=== PATIENT | female | born 1955 | race Caucasian/White ===

== ENCOUNTER → 2017-01-15 | Outpatient (CLI) | payer MEDICARE ==
[~2017-01-15] MED LIST: ISOVUE-370 76% 100ML VIAL (Q9967) As Ordered ONE
--- NOTE | 2017-01-15 14:19 | REP ---
CT ANGIOGRAM OF THE BRAIN: 01/15/2017. Comparison: 02/01/2016 and 12/06/2014 at [facility]. MRA brain 06/11/2014. Technique: After 75 mL of Isovue 370 scanning through the brain with thin-section axial coronal and sagittal reconstructions. Clinical history: Followup cerebral aneurysm anterior communicating artery. Findings. After contrast infusion the ventricles are seen midline symmetric and without dilatation or displacement. Basal ganglia is symmetric. Mullins-white junction grossly maintained. Cortical stripe preserved. No vascular territory infarct or atrophy. The brainstem, cerebellum, and posterior fossa grossly intact. Contrast images show a 2 mm aneurysm projecting off the inferior aspect anterior cerebral artery which is unchanged. It is best seen on coronal and sagittal MIP's. There is no other aneurysm or stenosis. There is some atherosclerotic plaque in the cavernous sinuses as before. Symmetric contribution of the vertebral arteries to the basilar artery. Impression: 1. 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 Projects inferiorly and best seen on coronal and sagittal MIPs. Some atherosclerotic plaques in the cavernous sinuses. No other finding. Signed by Olman Bui MD 01/15/2017 04:52 P
== END ==
LOC: M RAD 13:00
PROVIDERS: ATTEND Neurological Surgery
DX: I67.1 Cerebral aneurysm, nonruptured (principal)
CPT/HCPCS: 70496; Q9967

== ENCOUNTER → 2017-02-06 | Outpatient (CLI) | payer MEDICARE ==
--- NOTE | 2017-02-06 11:08 | REP ---
CAROTID ULTRASOUND: Real-time ultrasound evaluation and duplex Doppler interrogation of the extracranial carotid vasculature is performed. There is mild plaquing and narrowing in both carotid bulbs extending into the internal and external carotid arteries. Luminal narrowing is less than 50%. There is no evidence of hemodynamically significant stenosis of either internal carotid artery. Normal flow velocities are seen. The vertebral arteries demonstrate normal direction of flow. RIGHT LEFT Peak systolic velocity ICA 51.7 cm/s 74.6 cm/s End diastolic velocity ICA 14.0 cm/s 17.3 cm/s Peak systolic velocity CCA 72.8 cm/s 78.9 cm/s Peak systolic velocity ECA 61.4 cm/s 73.2 cm/s ICA/CCA ratio 0.71 0.95 IMPRESSION: Bilateral luminal narrowing of the internal carotid arteries less than 50%. No evidence of hemodynamically significant stenosis. Signed by Amado Mullins MD 02/06/2017 11:00 A
== END ==
LOC: M RAD 09:17
PROVIDERS: ATTEND Neurological Surgery
DX: I65.29 Occlusion and stenosis of unspecified carotid artery (principal)

== ENCOUNTER → 2017-06-07 | Outpatient (CLI) | payer MEDICARE ==
[~2017-06-07] MED LIST changes: +COUM2.5T17 PO; +GABA-282 PO; -ISOVUE-370 76% 100ML VIAL (Q9967) As Ordered ONE; +LISI-542 PO; +PERC5TAB12 PO; +PROAAER10 INH; +SKEL800T97 PO; +TYLETAB14 PO
[2017-06-07 11:07] LABS: MEAN CORPUSCULAR HEMOGLOBIN 31.1 pg (27.0-33.0); MEAN CORPUSCULAR HGB CONC 32.3 g/dl (32.0-36.5); MEAN CORPUSCULAR VOLUME 96.3 fl (80.0-96.0); RED CELL DISTRIBUTION WIDTH 13.3 % (11.5-14.5); WHITE BLOOD COUNT 6.3 10^3/uL (4.0-10.0)
[2017-06-07 11:18] LABS: INR 0.85
[2017-06-07 11:24] LABS: ALBUMIN 4.1 GM/DL (3.2-5.2); ALBUMIN/GLOBULIN RATIO 1.32 (1.00-1.93); ALKALINE PHOSPHATASE 77 U/L (45-117); ALT/SGPT 25 U/L (12-78); ANION GAP 4 MEQ/L (8-16); AST/SGOT 11 U/L (15-37); BILIRUBIN,TOTAL 0.2 MG/DL (0.2-1.0); BLOOD UREA NITROGEN 14 MG/DL (7-18); CALCIUM LEVEL 9.5 MG/DL (8.8-10.2); CARBON DIOXIDE LEVEL 32 MEQ/L (21-32); CHLORIDE LEVEL 105 MEQ/L (98-107); CREATININE FOR GFR 0.74 MG/DL (0.55-1.02); GLOMERULAR FILTRATION RATE > 60.0 (>45); GLUCOSE, FASTING 83 MG/DL (80-110); SODIUM LEVEL 141 MEQ/L (136-145); TOTAL PROTEIN 7.2 GM/DL (6.4-8.2)
--- NOTE | 2017-06-07 11:49 | REP ---
Chest x-ray: Two views. History: Anesthesia protocol. Comparison study October 31, 2007. Findings: The patient is status post cervical laminectomy and posterior element and ventral fusion surgery as before. There are degenerative disc changes in the thoracic spine. There is a surgical anchor in the right humeral head. No other bony abnormalities seen. The lungs are well inflated and clear. The pleural angles are sharp. Heart size is normal. The aorta is slightly tortuous. Pulmonary vasculature is not increased. Impression: No active cardiopulmonary disease. Extensive surgical fusion noted in the cervical spine. Signed by Leon Gaines MD 06/07/2017 03:51 P
--- NOTE | 2017-06-07 17:38 | ECGEPIP ---
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
== END ==
LOC: M ADMPAT 09:11
PROVIDERS: ATTEND Orthopaedic Surgery
DX: Z01.818 Encounter for other preprocedural examination (principal); M16.12 Unilateral primary osteoarthritis, left hip; Z98.890 Other specified postprocedural states

== ENCOUNTER 2017-06-20 05:54 | Inpatient (IN) | payer MEDICARE ==
[2017-06-07 09:19] VITALS: BP 112/64
--- NOTE | 2017-06-18 12:59 | HPE ---
DATE OF ADMISSION: 06/20/2017 ATTENDING PHYSICIAN: Blas Santos MD CHIEF COMPLAINT: Left hip pain and stiffness. HISTORY: The patient is a 61-year-old female with progressively worsening left hip pain and stiffness. She failed to improve with conservative measures. She continues to have pain with weightbearing activities and activities of daily living. She has consented for a left total hip arthroplasty with Dr. Santos. Medical optimization received from Raiza Jonas, nurse practitioner. This was reviewed during today's appointment. CURRENT MEDICATIONS: - Anoro Ellipta inhaler 62.5/25 mcg once daily - Celebrex 100 mg daily - lisinopril 5 mg daily - gabapentin 300 mg daily - ProAir 108 mcg two puffs every 4-6 hours as needed for shortness of breath - Skelaxin 800 mg daily - Tylenol with codeine 300/60 mg one tablet up to four times a day as needed ALLERGIES: SYMBICORT, reaction is oral thrush. CHRONIC MEDICAL CONDITIONS: Chronic obstructive pulmonary disease, lisinopril. Cervicalgia. Chronic headaches. Hyperlipidemia. Myalgia and myositis. Nicotine dependence. Osteoarthritis. Thrombocytopenia. SURGICAL HISTORY: Cervical fusion. Right knee anterior cruciate ligament (ACL) reconstruction. Right knee meniscus repair. Right rotator cuff repair. Right carpal tunnel release. SOCIAL HISTORY: The patient is a current smoker and not interested in quitting. She does understand risks of delayed healing with surgery. She occasionally consumes alcohol. She lives at home with her significant other. REVIEW OF SYSTEMS: The patient denies fevers, chills, nausea, vomiting, or diarrhea. She denies chest pain, shortness of breath, lightheadedness, headaches, or abdominal pain. She does have continued left hip pain with weightbearing activities and activities of daily living. She also has neck and low back pain. EXAMINATION: A well nourished, well developed female, in no apparent distress. Vital signs: Height 5 feet 1 inch. Weight 144 pounds. Temperature 97.6. Heart rate 62. Blood pressure 138/70. Respirations 14. Head: Normocephalic. Neck: Supple without lymphadenopathy. Heart: Regular rate and rhythm. Lungs: Clear to auscultation bilaterally. Abdomen: Bowel sounds are present. Abdomen is soft and nontender to palpation. Musculoskeletal: Inspection of the left hip reveals no gross abnormalities. Skin is intact. Overall motion of the hip is not too bad, and she does have 5/5 strength of the left lower extremity. There is some hip irritability elicited with range of motion. Her calf is soft, nontender to palpation, with no palpable cords noted. Pedal pulses are palpable. Capillary refill is brisk, and sensation is intact. LABORATORY DATA: Chest x-ray: No active cardiopulmonary disease. Extensive surgical fusion noted in the cervical spine. Electrocardiogram (EKG): Sinus rhythm. Urinalysis: Negative with urine culture revealing no growth. Nasal and sinus culture reveal normal deborah. Comprehensive metabolic profile: Fasting glucose 83, blood urea nitrogen 14, creatinine for GFR 0.74, glomerular filtration rate greater than 60. Sodium 141, potassium 5.0, chloride 105, carbon dioxide 32, anion gap decreased at 4, calcium 9.5, AST decreased at 11, ALT 25, alkaline phosphatase 77, total bilirubin 0.2, total protein 7.2, albumin 4.1, albumin globulin ratio 1.32. Complete blood count: WBC is 6.3, RBC is 4.89, hemoglobin 15.3, hematocrit elevated at 47.1, platelets decreased at 141. Erythrocyte sedimentation rate 6. Prothrombin time decreased at 11.6, INR 0.85. IMPRESSION: Left hip osteoarthritis with x-rays notable for end-stage degenerative changes. PLAN: The patient has elected for a left total hip arthroplasty with Dr. Santos. Medical optimization received and reviewed from Raiza Jonas, nurse practitioner, at time of visit. CANDIS
[~2017-06-20] VITALS: Ht 154.9 cm; Wt 65.7 kg
[2017-06-20] VITALS (7 sets, daily range): BP systolic 90–134; BP diastolic 56–75
[~2017-06-20 05:54] MED LIST changes: -COUM2.5T17 PO; -PERC5TAB12 PO
[2017-06-20] MEDS ORDERED: PERCOCET 5MG/325MG TAB PO ONE (06:00)
[2017-06-20] MEDS ORDERED: PREGABALIN 75 MG CAP(LYRICA) PO ONE (06:00)
[2017-06-20] MEDS ORDERED: LR 1,000 ML IV ONE (06:00)
[2017-06-20] MEDS ORDERED: CelecoXIB 400 MG CAP PO ONE (06:00)
[2017-06-20] MEDS ORDERED: BUPIVACAINE/EPIN 0.25% 30 ML VIAL As Ordered ONE (06:11)
[2017-06-20] MEDS ORDERED: ceFAZolin 1GM INJ (J0690) As Ordered ONE (06:12)
[2017-06-20] MEDS ORDERED: EPINEPHrine INJ 1 MG/ML 1ML AMP As Ordered ONE (06:12)
[2017-06-20] MEDS ORDERED: TRANEXAMIC ACID 100 MG/ML 10ML VIAL As Ordered ONE (06:12)
[2017-06-20] MEDS ORDERED: fentaNYL 100 MCG/2 ML INJECTION (J3010) As Ordered ONE (08:19)
[2017-06-20] MEDS ORDERED: PROPOFOL 200 MG/20 ML VIAL As Ordered ONE (08:19)
[2017-06-20] MEDS ORDERED: MIDAZOLAM INJ 5 MG/ML VIAL (J2250) As Ordered ONE (08:19)
[2017-06-20] MEDS ORDERED: LIDOCAINE 2% INJ 100 MG/5 ML SDV (FOR ANES.) As Ordered ONE (08:19)
[2017-06-20] MEDS ORDERED: ePHEDrine SULFATE 25 MG/5 ML(5MG/ML) SYRINGE As Ordered ONE ×2 (08:19→08:54)
[2017-06-20] MEDS ORDERED: ONDANSETRON 4MG/2ML VIAL (J2405) As Ordered ONE (08:20)
[2017-06-20] MEDS ORDERED: fentaNYL 100 MCG/2 ML INJECTION (J3010) IV PRN (10:00)
[2017-06-20] MEDS ORDERED: ACETAMINOPH W/CODEINE #3 TAB UD PO PRN (10:00)
[2017-06-20] MEDS ORDERED: PERCOCET 5MG/325MG TAB PO PRN ×2 (10:00)
[2017-06-20] MEDS ORDERED: ACETAMINOPHEN TAB 650MG DOSE (2X325MG) PO PRN (10:00)
[2017-06-20] MEDS ORDERED: METOCLOPRAMIDE INJ 10MG/2ML VIAL (J2765) IV PRN (10:00)
[2017-06-20] MEDS ORDERED: PROMETHAZINE INJ 25 MG/ML VIAL (J2550) IV PRN (10:00)
[2017-06-20] MEDS ORDERED: ONDANSETRON 4MG/2ML VIAL (J2405) IV PRN (10:00)
[2017-06-20] MEDS ORDERED: FLEET ENEMA PR PRN (10:00)
[2017-06-20] MEDS: D5W/0.45% SODIUM CHLORIDE 1,000 ML IV SCH ×2 (10:00→20:33)
[2017-06-20] MEDS ORDERED: LR 1,000 ML IV SCH (10:00)
[2017-06-20] MEDS ORDERED: HYDROmorphone HCL 1 MG/ML SYRINGE (J1170) IV PRN ×2 (10:15)
[2017-06-20] MEDS: MORPHINE 2 MG/ML 1ML SYRINGE IV PRN ×3 (10:20→10:30)
[2017-06-20] MEDS: PERCOCET 5MG/325MG TAB PO PRN ×2 (14:18→20:32)
[2017-06-20] MEDS ORDERED: WARFARIN SOD 2.5 MG TAB PO ONE (17:00)
[2017-06-20] MEDS ORDERED: WARFARIN SOD 1 MG TAB PO ONE (17:00)
--- NOTE | 2017-06-20 18:09 | RO ---
DATE OF PROCEDURE: 06/20/2017 PREOPERATIVE DIAGNOSIS: Left hip osteoarthritis. POSTOPERATIVE DIAGNOSIS: Left hip osteoarthritis. PROCEDURE PERFORMED: Left total hip replacement. SURGEON: Dr. Blas Santos [place] SURVEYOR: John Davidson PA-C ANESTHESIA: Dr. Pham, spinal. ESTIMATED BLOOD LOSS: Less than 50 mL, replaced with crystalloid. No complications. COMPONENTS USED: [place] system Press-Fit hip component size 50 mm acetabular component, size 4 femoral component, +1 neck length, 32 mm hip ball, size 32 mm AltrX liner, apex hole eliminator times one. INDICATIONS: Progressive discomfort in the left hip with symptoms of osteoarthritis with positive imaging studies as well. Consent reviewed in detail with the patient, including a fito discussion of the pathology involved, procedure proposed, alternatives including doing nothing, risks including but not limited to pain, failure, infection, bleeding blood loss, incomplete relief of symptoms, blood clot, dislocation, need for more surgery, limp, loss of limb, and other issues. The patient agrees to proceed with surgery. DESCRIPTION OF PROCEDURE: Identified in the holding area, site and side verified, brought to the operating room. Spinal anesthesia was administered. She was then positioned on the [place] frame for exposure of the left hip for a total hip replacement in the lateral decubitus position. Once I and the link trainer operator were comfortable with the patient's positioning, she was then sterilely prepped and draped in the usual fashion. Time-out was accomplished. Incision was based on bony landmarks, outlined with a marking pen, infiltrated with 0.25% Marcaine with epinephrine. The incision was then made with a #10 blade knife. I stood on the patient's posterior, Mr. Davidson on the anterior. This approach is a modified Hardinge approach. Next, the dissection was continued through subcuticular tissues to the lateral fascia. Lateral fascia was divided parallel to its fibers exposing the abductor mechanism. The abductor mechanism was split at 2 o'clock anterior position and Meyerding's were applied, and I split the minimus and capsular tissues with the hot knife while Mr. Davidson helped position the retractors. A stay stitch was placed in the anterior aspect of the abductor mechanism and then I released the abductor mechanism from the greater trochanter leaving a cuff of tissue for later repair. Next, the dissection continued releasing the capsule and splitting the vastus lateralis. Next, we then utilized a bone hook to dislocate the hip. Mr. Davidson assisted in putting the hip in the sterile bag. Next, we positioned retractors to expose the hip and protect soft tissues. I used the canal opening reamer, followed by canal finding reamer, followed by conical reamers. We reamed through a size 4. We used the lateralizer as well. Next, template was utilized to predict femoral neck cut which was made by myself with an oscillating saw. Next, we removed medial tissue at the calcar using the cookie cutter and retained that bone graft potentially for later use. Next, we broached through a size of 4 broach, which fit very appropriately. Next the broach was then removed. We turned attention to the acetabulum. Mr. Davidson assisted with anterior and posterior retractors as well as Meyerding retractors, and I removed the acetabular labrum using a hot knife and cleared the condyloid fossa using the hot knife and removed the transverse acetabular ligament using the hot knife. Next, once the exposure was adequate, I then utilized the hemispherical reamers beginning at size 46 and reaming up through a size 49, size 49 seemed to fit appropriately so we elected for a size 50 Press-Fit acetabular cup. We had bleeding bone, and we were down to the floor of the acetabulum. Next, irrigation was accomplished with pulse lavage, and then I utilized the targeting device to place the nontrial acetabular component, which was tamped into place with a mallet. We verified it was in the floor of the acetabulum and placed the apex hole eliminator and placed a 32 mm AltrX liner. Next, attention was then turned to the femoral component. We trialed off of the 4 broach for +1 versus a +5. Next, I elected to select the 4 nontrial femoral component and trial off the nontrial femoral component. The broach was removed. Pulse lavage was utilized. Nontrial femoral component size 4 standard was placed and tamped into place. It was slightly more proud than the trial. We trialed with a +1 neck length, which seemed to fit appropriately. We trialed with a +5 that seemed tight. We cleaned the trunnion and then placed the nontrial 32 mm +1 femoral head. The hip was reduced and I placed the hip through a range of motion, and we appreciated stability with flexion and internal rotation, as well as extension and external rotation. Soft tissue tension was appropriate. Next, I repaired capsular tissues and minimus tissues with interrupted stitch followed by repair of the abductor mechanism to the cuff of tissue on the greater trochanter with interrupted stitch including repair of the vastus lateralis. Next, lateral fascia was repaired using interrupted stitch as well as a running Stratafix stitch. Deep dermis was repaired using interrupted stitch followed by placement of a Prineo dressing. This had been accomplished after pulse lavage irrigation of the final prosthetic as well as irrigation with TXA solution as hemostatic. The TXA was allowed to stand for 1 minute prior to evacuation. Next, once the deep dermis had been reapproximated, we placed the Prineo dressing. Next, the patient was then moved to the hospital bed supine, moved to recovery room in good condition. For further details, please refer to the medical record. Mr. Davidson participated in the entirety of the case in the capacity of engineer first assistant, which included help with dissection, retractor placement and maintenance of position, among his numerous duties.
[2017-06-20] MEDS: GABAPENTIN 300 MG CAP PO SCH (20:31)
[2017-06-21] MEDS: PERCOCET 5MG/325MG TAB PO PRN ×4 (00:56→21:19)
[2017-06-21 02:00] VITALS: BP 131/74
[2017-06-21 06:00] VITALS: BP 113/63
[2017-06-21 06:39] LABS: MEAN CORPUSCULAR HEMOGLOBIN 32.1 pg (27.0-33.0); MEAN CORPUSCULAR HGB CONC 33.4 g/dl (32.0-36.5); PLATELET COUNT, AUTOMATED 102 10^3/uL (150-450); RED CELL DISTRIBUTION WIDTH 13.2 % (11.5-14.5)
[2017-06-21 06:50] LABS: INR 1.12
[2017-06-21] MEDS: MOM 30ML SUSPENSION UDC PO SCH ×2 (09:00)
[2017-06-21] MEDS ORDERED: CelecoXIB (CeleBREX) 100 MG CAP PO ONE (09:00)
[2017-06-21] MEDS: MIRALAX *UNIT DOSE* 17GM PACKET PO SCH (09:01)
[2017-06-21] MEDS: SENOKOT S TAB PO SCH ×2 (09:01→21:17)
[2017-06-21] MEDS: GABAPENTIN 300 MG CAP PO SCH ×2 (09:01→21:17)
--- NOTE | 2017-06-21 09:17 | REP ---
LEFT HIP: Two view of the left hip performed. There is a total left hip prosthesis in good position. Structures are intact and well aligned. Signed by Amado Mullins MD 06/24/2017 09:44 A
[2017-06-21 10:00] VITALS: BP 115/73
[2017-06-21 14:00] VITALS: BP 113/65
[2017-06-21] MEDS ORDERED: WARFARIN SOD 5 MG TAB PO ONE (17:00)
[2017-06-21 22:00] VITALS: BP 121/56
[2017-06-22] MEDS: PERCOCET 5MG/325MG TAB PO PRN ×3 (02:14→10:59)
[2017-06-22 06:00] VITALS: BP 131/81
[2017-06-22 06:44] LABS: MEAN CORPUSCULAR HEMOGLOBIN 31.6 pg (27.0-33.0); MEAN CORPUSCULAR HGB CONC 32.6 g/dl (32.0-36.5); MEAN CORPUSCULAR VOLUME 96.9 fl (80.0-96.0); RED CELL DISTRIBUTION WIDTH 13.4 % (11.5-14.5); WHITE BLOOD COUNT 11.2 10^3/uL (4.0-10.0)
[2017-06-22 07:01] LABS: ANION GAP 4 MEQ/L (8-16); BLOOD UREA NITROGEN 13 MG/DL (7-18); CALCIUM LEVEL 8.7 MG/DL (8.8-10.2); CARBON DIOXIDE LEVEL 29 MEQ/L (21-32); CHLORIDE LEVEL 107 MEQ/L (98-107); CREATININE FOR GFR 0.67 MG/DL (0.55-1.02); GLOMERULAR FILTRATION RATE > 60.0 (>45); GLUCOSE, FASTING 112 MG/DL (80-110); POTASSIUM SERUM 4.6 MEQ/L (3.5-5.1); SODIUM LEVEL 140 MEQ/L (136-145)
[2017-06-22 07:09] LABS: INR 1.24
[2017-06-22 07:16] LABS: PLATELET COUNT, AUTOMATED 94 10^3/uL (150-450)
[2017-06-22 07:17] LABS: IMMATURE PLATELET FRACTION % 16.5 % (0.0-9.6); PLATELET F 94
[2017-06-22] MEDS: SENOKOT S TAB PO SCH (08:40)
[2017-06-22] MEDS: MOM 30ML SUSPENSION UDC PO SCH ×2 (08:40→08:41)
[2017-06-22] MEDS: GABAPENTIN 300 MG CAP PO SCH (08:40)
[2017-06-22] MEDS: MIRALAX *UNIT DOSE* 17GM PACKET PO SCH (08:41)
[2017-06-22] MEDS ORDERED: COUM2.5T17 PO (09:17)
[2017-06-22] MEDS ORDERED: PERC5TAB12 PO (09:17)
[2017-06-22] MEDS ORDERED: ENOXAPARIN 40 MG/0.4 ML SYRINGE (J1650) SC ONE (10:00)
--- NOTE | 2017-06-25 18:16 | DSES ---
DATE OF ADMISSION: 06/20/2017 DATE OF DISCHARGE: 06/22/2017 ATTENDING PHYSICIAN: Dr. Blas Santos ADMITTING DIAGNOSIS: Left hip osteoarthritis. OTHER DIAGNOSES: 1. Chronic obstructive pulmonary disease. 2. Hypertension. 3. Cervicalgia. 4. Chronic headaches. 5. Hyperlipidemia. 6. Myalgia. 7. Myositis. 8. Nicotine dependence. 9. Thrombocytopenia. DISCHARGE DIAGNOSIS: Left hip osteoarthritis status post left total hip arthroplasty. HISTORY: The patient is a 61-year-old female with progressively worsening left hip pain and stiffness. She failed to improve with conservative measures so she consented for an elective left total hip arthroplasty with Dr. Santos. OPERATION PERFORMED: Left total hip arthroplasty. HOSPITAL COURSE: The patient underwent a left total hip arthroplasty under spinal anesthesia which was uneventful. She was up with physical therapy per their protocol, weightbearing as tolerated on the left lower extremity. The patient was discharged on oral pain medications and will resume her preoperative medications and diet. The patient will take her Coumadin and use her thromboembolic- deterrent stockings for 30 days postoperatively to prevent deep venous thrombosis. She will followup in our office in approximately 12-14 days for a wound check and staple removal. She is encouraged to contact our office sooner if there is any increased pain, drainage, redness, numbness or tingling in the extremity, fever greater than 101 degrees, or any other concerns. Please see medical record for additional details. MTDD
== END 2017-06-22 11:03 | disposition home health service (06) | DRG 470 ==
LOC: M OR 05:54 → M MS5PR 10:50
PROVIDERS: ADMIT Orthopaedic Surgery; ATTEND Orthopaedic Surgery
PROC: 0SRB02Z Replacement of Left Hip Joint with Metal on Polyethylene Synthetic Substitute, Open Approach (ICD-10-PCS; principal; 2017-06-20 07:30)
DX: M16.12 Unilateral primary osteoarthritis, left hip (principal); J44.9 Chronic obstructive pulmonary disease, unspecified; M54.2 Cervicalgia; R51 Headache; E78.5 Hyperlipidemia, unspecified; M79.1 Myalgia; F17.210 Nicotine dependence, cigarettes, uncomplicated; D69.6 Thrombocytopenia, unspecified; Z79.899 Other long term (current) drug therapy; Z98.1 Arthrodesis status

== ENCOUNTER → 2017-07-08 | Outpatient (REF) | payer MEDICARE ==
[~2017-07-08] MED LIST changes: +COUM2.5T17 PO; +PERC5TAB12 PO
[2017-07-08 19:21] LABS: INR 1.94
== END ==
LOC: M LAB REF 12:15
PROVIDERS: ATTEND Orthopaedic Surgery
DX: Z79.01 Long term (current) use of anticoagulants (principal)

== ENCOUNTER → 2017-07-11 | Outpatient (REF) | payer MEDICARE ==
[2017-07-11 17:31] LABS: INR 2.26
== END ==
LOC: M LAB REF 16:53
PROVIDERS: ATTEND Orthopaedic Surgery
DX: Z79.01 Long term (current) use of anticoagulants (principal)

== ENCOUNTER → 2017-07-15 | Outpatient (REF) | payer MEDICARE ==
[2017-07-15 15:52] LABS: INR 2.38
== END ==
LOC: M LAB REF 15:25
PROVIDERS: ATTEND Orthopaedic Surgery
DX: Z79.01 Long term (current) use of anticoagulants (principal)

== ENCOUNTER 2018-04-22 08:06 | Day surgery (SDC) | payer MEDICARE ==
[2018-04-22] MEDS ORDERED: NS 1,000 ML IV (09:00)
[2018-04-22] MEDS ORDERED: LIDOCAINE 2% INJ 100 MG/5 ML SDV (FOR ANES.) As Ordered (10:08)
[2018-04-22] MEDS ORDERED: PROPOFOL 200 MG/20 ML VIAL As Ordered (10:09)
== END 2018-04-22 11:39 | disposition home or self-care (01) ==
LOC: M OPP 08:06
DX: Z12.11 Encounter for screening for malignant neoplasm of colon (principal); Z86.010 Personal history of colon polyps; D12.1 Benign neoplasm of appendix; D12.5 Benign neoplasm of sigmoid colon; I67.1 Cerebral aneurysm, nonruptured; J44.9 Chronic obstructive pulmonary disease, unspecified; G62.9 Polyneuropathy, unspecified; F17.210 Nicotine dependence, cigarettes, uncomplicated; Z79.899 Other long term (current) drug therapy; Z98.1 Arthrodesis status; Z90.710 Acquired absence of both cervix and uterus; Z85.828 Personal history of other malignant neoplasm of skin; Z96.642 Presence of left artificial hip joint; Z80.0 Family history of malignant neoplasm of digestive organs; Z82.49 Family history of ischemic heart disease and other diseases of the circulatory system
CPT/HCPCS: 45385

== ENCOUNTER 2021-03-24 10:45 | Inpatient (IN) | payer MEDICARE ==
[~2021-03-24] VITALS: Ht 154.9 cm; Wt 68.0 kg
[~2021-03-24 10:45] MED LIST changes: -LISI-542 PO; +LISI-898 PO; +VENTAER INH; +tylenol with codeine PO
[2021-03-24] MEDS ORDERED: ACET300T52 PO (11:01)
[2021-03-24] MEDS ORDERED: methylPREDNISolone 125MG 2ML VIAL IV ONE (11:30)
[2021-03-24] MEDS: IPRATROPIUM 0.5MG/ALBUTEROL 2.5MG INH SOL UD 3ML (DUONEB) NEB SCH ×4 (11:52→19:57)
--- NOTE | 2021-03-24 11:54 | REP ---
INDICATION: DYSPNEA/COUGH. COMPARISON: Comparison chest x-ray June 07, 2017. TECHNIQUE: Portable upright AP chest radiograph. FINDINGS: The lungs are symmetrically aerated and free of infiltrate. EKG electrodes are seen. Pleural angles are sharp. The heart is not enlarged. The patient is status post extensive cervical spine fusion surgery. There is an orthopedic screw in the right humeral head.. IMPRESSION: No focal infiltrate. Cervical spine fusion hardware.. <Electronically signed by Jeromy Gaines > 03/24/21 [id number]
[2021-03-24 12:28] LABS: VENOUS BASE EXCESS 6.7 (-2.0-2.0); VENOUS HCO3 34.7 MEQ/L (23.0-27.0); VENOUS O2 SATURATION 91.8 % (60.0-80.0); VENOUS PARTIAL PRESSURE CO2 63.9 mmHg (38.0-50.0); VENOUS PARTIAL PRESSURE O2 62.3 mmHg (30.0-50.0); VENOUS PH 7.353 UNITS (7.330-7.430); VENOUS STANDARD HCO3 30.4 MEQ/L; VENOUS TOTAL CO2 36.7 MEQ/L (24.0-28.0)
[2021-03-24 12:35] LABS: HEMATOCRIT 44.8 % (36.0-47.0); HEMOGLOBIN 14.6 g/dl (12.0-15.5); MEAN CORPUSCULAR HEMOGLOBIN 31.3 pg (27.0-33.0); MEAN CORPUSCULAR HGB CONC 32.6 g/dl (32.0-36.5); MEAN CORPUSCULAR VOLUME 95.9 fl (80.0-96.0); PLATELET COUNT, AUTOMATED 168 10^3/uL (150-450); RED BLOOD COUNT 4.67 10^6/uL (4.00-5.40)
[2021-03-24 12:42] LABS: WHITE BLOOD COUNT 10.1 10^3/uL (4.0-10.0)
[2021-03-24 13:00] LABS: ALBUMIN 3.1 GM/DL (3.2-5.2); ALT/SGPT 28 U/L (12-78); BILIRUBIN,DIRECT < 0.1 MG/DL (0.0-0.2); BILIRUBIN,TOTAL 0.3 MG/DL (0.2-1.0); BLOOD UREA NITROGEN 22 MG/DL (7-18); CALCIUM LEVEL 9.6 MG/DL (8.8-10.2); CARBON DIOXIDE LEVEL 35 MEQ/L (21-32); CHLORIDE LEVEL 102 MEQ/L (98-107); CPK CREATINE PHOSPHOKINASE 76 U/L (26-192); CREATININE FOR GFR 0.59 MG/DL (0.55-1.30); GLOMERULAR FILTRATION RATE > 60.0 (>45); GLUCOSE, FASTING 118 MG/DL (70-100); LYMPHOCYTES 18 % (16-44); MB/CK RELATIVE INDEX 3.95 (< OR =4); MONOCYTES 5 % (0-5); NEUTROPHILS 77 % (28-66); NT-PRO BNP 602 PG/ML (<125); PLATELET ESTIMATE NORMAL (NORMAL); POTASSIUM SERUM 4.1 MEQ/L (3.5-5.1); SODIUM LEVEL 143 MEQ/L (136-145); THYROID STIMULATING HORMONE 0.499 uIU/ML (0.358-3.740); THYROXINE (T4) 8.2 UG/DL (4.5-12.0); TOTAL PROTEIN 6.5 GM/DL (6.4-8.2); TROPONIN I < 0.02 NG/ML (< 0.10)
[2021-03-24] MEDS ORDERED: GABA-283 PO (14:24)
[2021-03-24] MEDS ORDERED: ACETAMINOPHEN TAB 650MG DOSE (2X325MG) PO PRN (14:35)
[2021-03-24] MEDS ORDERED: ALBUTEROL SULFATE 2.5 MG/0.5 ML INH NEB SOLN NEB PRN (14:35)
[2021-03-24] MEDS: predniSONE 20 MG TAB PO SCH (15:00)
--- NOTE | 2021-03-24 15:07 | HPEPDOC ---
General Date of Admission 03/24/21 Date of Service: Mar 24, 2021 Chief Complaint The patient is a 65-year-old female admitted with a reason for visit of Cough, Fever, Sob. Source: Patient Exam Limitations: No limitations History of Present Illness Patient is 65 years old female with past medical history of COPD not on the oxygen, active smoker, hypertension, hyperlipidemia presented to the hospital with shortness of breath. Patient stated that 2 days ago she developed increased shortness of breath associated with wheezes, chills, sneezing. Also p atient reported intermittent cough with yellowish sputum production. Her boyfriend had the same symptoms. In ER patient was tested positive for rhino enterovirus infection. Patient was found to have leukocytosis of 10.1, ABG showed mild respiratory acidosis. CT chest shows no focal infiltrate Home Medications Scheduled Gabapentin (Gabapentin) 400 Mg Capsule, 400 MG PO BID, (Reported) Lisinopril (Lisinopril) 5 Mg Tab, 5 MG PO DAILY, (Reported) Scheduled PRN Acetaminophen with Codeine (Acetaminophen-Cod #4 Tablet) 1 Each Tablet, 1 TAB PO Q6H PRN for PAIN LEVEL 5-10, (Reported) Albuterol Sulfate (Ventolin Hfa) 108 Mcg/Act Aer, 1 PUFF INH Q4H PRN for SHORTNESS OF BREATH, (Reported) Allergies Coded Allergies: No Known Allergies (Verified , 06/20/17) Past Medical History Medical History COPD, headache, hyperlipidemia, thrombocytopenia, osteoarthritis Surgical History Cervical fusion. Right knee anterior cruciate ligament (ACL) reconstruction. Right knee meniscus repair. Right rotator cuff repair. Right carpal tunnel release. Family History I personally reviewed family history and found not pertinent Social History * Smoker: current smoker Alcohol: Denies Drugs: denies A-FIB/CHADSVASC A-FIB History Current/History of A-Fib/PAF?: No Current PO Anticoag Therapy: No Review of Systems Constitutional: Reports: Malaise; Denies: Chills Eyes: Denies: Pain ENT: Denies: Head Aches Skin: Denies: Rash, Lesions Pulmonary: Reports: Dyspnea, Cough Cardiovascular: Denies: Chest Pain Gastrointestinal: Denies: Nausea Genitourinary: Denies: Dysuria Hematologic: Denies: Bruising Endocrine: Denies: Polydipsia Musculoskeletal: Denies: Neck Pain Neurological: Denies: Weakness Psych: Reports: Mood Normal Physical Examination General Exam: Positive: Alert, Cooperative Eye Exam: Positive: PERRLA ENT Exam: Positive: Atraumatic Neck Exam: Positive: Supple; Negative: JVD Chest Exam: Positive: Rhonchi, Wheezing Heart Exam: Positive: Rate Normal Telemetry: Positive: No significant arrhythmia Abdomen Exam: Positive: Normal bowel sounds Extremity Exam: Negative: Clubbing Skin Exam: Positive: Nl turgor and temperature Neuro Exam: Positive: Normal Gait Psych Exam: Positive: Mental status NL Vital Signs Vital Signs Date Time Temp Pulse Resp B/P (MAP) Pulse Ox O2 Delivery O2 Flow Rate FiO2 03/24/21 11:16 03/24/21 11:16 Room Air 03/24/21 10:45 99.2 82 22 88 Laboratory Data Labs 24H Laboratory Tests 2 03/24/21 11:20: Neutrophils (%) (Auto) , Nucleated Red Blood Cells % (auto) 0.0, Neutrophils 77H, Lymphocytes (Manual) 18, Monocytes (Manual) 5, Red Blood Cell Morphology NORMAL, Platelet Estimate NORMAL, Anion Gap 6L, Glomerular Filtration Rate > 60.0, Lactic Acid Level 1.2, Calcium Level 9.6, Total Bilirubin 0.3, Direct Bilirubin < 0.1, Aspartate Amino Transf (AST/SGOT) 19, Alanine Aminotransferase (ALT/SGPT) 28, Alkaline Phosphatase 79, Total Creatine Kinase 76, Creatine Kinase MB 3.0, Creatine Kinase MB Relative Index 3.95, Troponin I < 0.02, NT-Pro -B-Type Natriuretic Peptide 602H, Total Protein 6.5, Albumin 3.1L, Albumin/Globulin Ratio 0.9L, Thyroid Stimulating Hormone (TSH) 0.499, Thyroxine (T4) 8.2 03/24/21 11:52: Blood Gas Bicarbonate Standard 30.4, Venous Blood pH 7.353, Venous Blood Partial Pressure CO2 63.9H, Venous Blood Partial Pressure O2 62.3H, Venous Blood Total Carbon Dioxide 36.7H, Venous Blood HCO3 34.7H, Venous Blood Oxygen Saturation 91.8H, Venous Blood Base Excess 6.7H 03/24/21 12:05: POC pH (Misc Panel) 7.382, POC Base Excess (Misc Panel) 11.0H, POC Saturated Percent O2 (Misc) 99H, POC pO2 (Misc Panel) 156.0H, POC pCO2 (Misc Panel) 61.6*H, POC HCO3 (Misc Panel) 36.6H, POC Total CO2 (Misc Panel) 38.0H CBC/BMP Laboratory Tests 03/24/21 11:20 Microbiology Microbiology 03/24/21 Blood Culture, Received Pending 03/24/21 Respiratory Virus Panel (PCR) ([facility]) - Final, Complete Human Rhinovirus/Enterovirus Assessment/Plan Patient is 65 years old female with past medical history of COPD not on the oxygen, active smoker, hypertension, hyperlipidemia presented to the hospital with shortness of breath. Patient stated that 2 days ago she developed increased shortness of breath associated with wheezes, chills, sneezing. Also patient reported intermittent cough with yellowish sputum production. Her boyfriend had the same symptoms. In ER patient was tested positive for rhino enterovirus infection. Patient was found to have leukocytosis of 10.1, ABG showed mild respiratory acidosis. CT chest shows no focal infiltrate Problems (1) Dyspnea Status: Acute Problem Text: Secondary to COPD exacerbation due to rhinovirus enterovirus infection Inhalers, steroid p.o. Levofloxacin IV Oxygen supplementation (2) Hyperlipidemia Status: Chronic Problem Text: Started statin (3) Hypertension Status: Chronic Problem Text: Blood pressure on admission elevated Lisinopril 20 mg Plan / VTE VTE Prophylaxis Ordered?: Yes MICHELINE SOLIS DO Mar 24, 2021 15:07
[2021-03-24] MEDS: ATORVASTATIN 20 MG TAB PO SCH (15:30)
[2021-03-24 18:36] VITALS: BP 143/73
[2021-03-24] MEDS: LevoFLOXacin IV 750 MG in IV 1 EA IV SCH (18:56)
[2021-03-24] MEDS: ADVAIR HFA 230/21MCG INHALER INH SCH (19:56)
[2021-03-24 20:00] VITALS: BP 156/74
[2021-03-24] MEDS ORDERED: ACETAMINOPH W/CODEINE #3 TAB UD PO PRN (20:45)
[2021-03-24] MEDS: ENOXAPARIN 40MG/0.4ML SYRINGE (J1650 PER 10MG) SC SCH (20:50)
[2021-03-25] MEDS: IPRATROPIUM 0.5MG/ALBUTEROL 2.5MG INH SOL UD 3ML (DUONEB) NEB SCH ×4 (02:00→20:40)
[2021-03-25 06:00] VITALS: BP 157/88
[2021-03-25 06:17] LABS: HEMATOCRIT 44.8 % (36.0-47.0); HEMOGLOBIN 14.3 g/dl (12.0-15.5); MEAN CORPUSCULAR HEMOGLOBIN 30.6 pg (27.0-33.0); MEAN CORPUSCULAR HGB CONC 31.9 g/dl (32.0-36.5); MEAN CORPUSCULAR VOLUME 95.9 fl (80.0-96.0); PLATELET COUNT, AUTOMATED 183 10^3/uL (150-450); RED BLOOD COUNT 4.67 10^6/uL (4.00-5.40); WHITE BLOOD COUNT 10.4 10^3/uL (4.0-10.0)
[2021-03-25 06:46] LABS: ALBUMIN 2.8 GM/DL (3.2-5.2); ALT/SGPT 26 U/L (12-78); BILIRUBIN,TOTAL 0.2 MG/DL (0.2-1.0); BLOOD UREA NITROGEN 22 MG/DL (7-18); CALCIUM LEVEL 9.4 MG/DL (8.8-10.2); CARBON DIOXIDE LEVEL 36 MEQ/L (21-32); CHLORIDE LEVEL 101 MEQ/L (98-107); CREATININE FOR GFR 0.55 MG/DL (0.55-1.30); GLOMERULAR FILTRATION RATE > 60.0 (>45); GLUCOSE, FASTING 108 MG/DL (70-100); MAGNESIUM LEVEL 2.3 MG/DL (1.8-2.4); POTASSIUM SERUM 4.6 MEQ/L (3.5-5.1); SODIUM LEVEL 140 MEQ/L (136-145); TOTAL PROTEIN 6.4 GM/DL (6.4-8.2)
[2021-03-25] MEDS: ADVAIR HFA 230/21MCG INHALER INH SCH ×2 (07:46→20:41)
--- NOTE | 2021-03-25 10:56 | IPNPDOC ---
Text Note Date of Service The patient was seen on 03/25/21. NOTE Subjective: Patient stated that she feels better and her breathing improved. No fever or chills Objective: GENERAL APPEARANCE: NAD HEENT: no scleral icterus, no JVD, EOMI CARDIOVASCULAR: S1S2 LUNGS: Diminished lung sounds with mild rales ABDOMEN: soft & not tender w palpation MUSCULOSKELETAL: no cyanosis, no swelling INTEGUMENT: no generalized pallor NEUROLOGICAL: cranial nerve function from 2-12 intact i, follows commands, speech not dysarthric Assessment/Plan Patient is 65 years old female with past medical history of COPD not on the oxygen, active smoker, hypertension, hyperlipidemia presented to the hospital with shortness of breath. Patient stated that 2 days ago she developed increased shortness of breath associated with wheezes, chills, sneezing. Also patient reported intermittent cough with yellowish sputum production. Her boyfriend had the same symptoms. In ER patient was tested positive for rhino enterovirus infection. Patient was found to have leukocytosis of 10.1, ABG showed mild respiratory acidosis. CT chest shows no focal infiltrate Problems (1) Dyspnea Secondary to COPD exacerbation due to rhinovirus enterovirus infection Continue inhalers, steroid p.o. Levofloxacin IV Oxygen supplementation (2) Hyperlipidemia Continue statin (3) Hypertension Continue lisinopril VS,Fishbone, I+O VS, Fishbone, I+O Laboratory Tests 03/24/21 11:20 03/25/21 05:44 Vital Signs Date Time Temp Pulse Resp B/P (MAP) Pulse Ox O2 Delivery O2 Flow Rate FiO2 03/25/21 06:00 96.9 84 18 157/88 (111) 97 Room Air 03/24/21 21:00 2.0 I&O- Last 24 Hours up to 6 AM 03/25/21 06:00 Intake Total 0 ml Balance 0 ml MICHELINE SOLIS DO Mar 25, 2021 10:56
[2021-03-25] MEDS: predniSONE 20 MG TAB PO SCH (12:17)
[2021-03-25] MEDS: GABAPENTIN 400MG CAP PO SCH ×2 (12:18→21:10)
[2021-03-25] MEDS: ATORVASTATIN 20 MG TAB PO SCH (12:18)
[2021-03-25] MEDS: PANTOPRAZOLE 40MG TAB (PROTONIX) PO SCH (12:19)
[2021-03-25] MEDS: FUROSEMIDE 20MG/2ML VIAL (J1940) IV SCH ×2 (12:19→21:10)
[2021-03-25] MEDS: lisinopriL 5 MG TAB PO SCH (12:22)
[2021-03-25] MEDS: NICOTINE 21MG/24HR 1 EA TRANSDERMAL TD SCH (12:22)
[2021-03-25 14:00] VITALS: BP 150/74
[2021-03-25] MEDS: LevoFLOXacin IV 750 MG in IV 1 EA IV SCH (15:35)
[2021-03-25] MEDS: ENOXAPARIN 40MG/0.4ML SYRINGE (J1650 PER 10MG) SC SCH (21:10)
--- NOTE | 2021-03-25 21:17 | ECGEPIP ---
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
[2021-03-25 22:00] VITALS: BP 146/70
[2021-03-26] MEDS: IPRATROPIUM 0.5MG/ALBUTEROL 2.5MG INH SOL UD 3ML (DUONEB) NEB SCH ×2 (01:59→07:41)
[2021-03-26] MEDS: FUROSEMIDE 20MG/2ML VIAL (J1940) IV SCH (04:31)
[2021-03-26 06:00] VITALS: BP 141/67
[2021-03-26] MEDS: ADVAIR HFA 230/21MCG INHALER INH SCH (07:41)
[2021-03-26] MEDS: predniSONE 20 MG TAB PO SCH (08:53)
[2021-03-26] MEDS: GABAPENTIN 400MG CAP PO SCH (08:53)
[2021-03-26] MEDS: PANTOPRAZOLE 40MG TAB (PROTONIX) PO SCH (08:54)
[2021-03-26] MEDS: ATORVASTATIN 20 MG TAB PO SCH (08:54)
[2021-03-26] MEDS: NICOTINE 21MG/24HR 1 EA TRANSDERMAL TD SCH (08:54)
[2021-03-26 08:57] VITALS: BP 145/68
[2021-03-26] MEDS: lisinopriL 5 MG TAB PO SCH (08:57)
[2021-03-26] MEDS ORDERED: LASI20TA3 PO (09:50)
[2021-03-26] MEDS ORDERED: PRED10TA2 PO (09:50)
[2021-03-26] MEDS ORDERED: ADVA230A INH (09:50)
[2021-03-26] MEDS ORDERED: IPRAINH INH (09:50)
[2021-03-26] MEDS ORDERED: PANT40TA29 PO (09:50)
[2021-03-26] MEDS ORDERED: AZIT500T5 PO (09:50)
[2021-03-26] MEDS ORDERED: ATOR1TAB21 PO (09:50)
--- NOTE | 2021-03-26 15:33 | DS.PDOC ---
Discharge Summary General Date of Admission Mar 24, 2021 at 14:32 Date of Discharge 03/26/21 Discharge Summary PROCEDURES PERFORMED DURING STAY: [None]. ADMITTING DIAGNOSES: Dyspnea Hyperlipidemia Hypertension DISCHARGE DIAGNOSES: Dyspnea Hyperlipidemia Hypertension COMPLICATIONS/CHIEF COMPLAINT: Copd With Acute Exacerbation. HISTORY OF PRESENT ILLNESS: Patient is 65 years old female with past medical history of COPD not on the oxygen, active smoker, hypertension, hyperlipidemia presented to the hospital with shortness of breath. Patient stated that 2 days ago she developed increased shortness of breath associated with wheezes, chills, sneezing. Also patient reported intermittent cough with yellowish sputum production. Her boyfriend had the same symptoms. In ER patient was tested positive for rhino enterovirus infection. Patient was found to have le ukocytosis of 10.1, ABG showed mild respiratory acidosis. CT chest shows no focal infiltrate HOSPITAL COURSE: During the hospital stay the following issues addressed (1) Dyspnea Secondary to COPD exacerbation due to rhinovirus enterovirus infection Continue inhalers, steroid p.o. Patient received treatment with levofloxacin IV Oxygen supplementation (2) Hyperlipidemia Continue statin (3) Hypertension Continue lisinopril DISCHARGE MEDICATIONS: Please see below. ALLERGIES: Please see below. PHYSICAL EXAMINATION ON DISCHARGE: VITAL SIGNS: Please see below. GENERAL APPEARANCE: NAD HEENT: no scleral icterus, no JVD, EOMI CARDIOVASCULAR: S1S2 LUNGS: Diminished lung sounds with mild rales ABDOMEN: soft & not tender w palpation MUSCULOSKELETAL: no cyanosis, no swelling INTEGUMENT: no generalized pallor NEUROLOGICAL: cranial nerve function from 2-12 intact i, follows commands, speech not dysarthric LABORATORY DATA: Please see below. PROGNOSIS: Fair ACTIVITY: [As tolerated]. DIET: Cardiac DISPOSITION: 01 Home, Self-Care. DISCHARGE INSTRUCTIONS: Stop smoking ITEMS TO FOLLOWUP ON ON OUTPATIENT: Follow-up with PCP and digital marketing lead DISCHARGE CONDITION: [Stable]. TIME SPENT ON DISCHARGE: 40 minutes. Vital Signs/I&Os Vital Signs Date Time Temp Pulse Resp B/P (MAP) Pulse Ox O2 Delivery O2 Flow Rate FiO2 03/26/21 10:20 89 Nasal Cannula 2.0 03/26/21 08:57 145/68 03/26/21 06:00 98.6 63 17 I&O- Last 24 Hours up to 6 AM 03/26/21 06:00 Intake Total 910 ml Output Total 850 ml Balance 60 ml Microbiology Microbiology 03/24/21 Blood Culture - Preliminary, Resulted No growth after 24 hours . All specim... 03/24/21 Blood Culture - Preliminary, Resulted No Growth after 48 hours. All Specime... 03/24/21 Respiratory Virus Panel (PCR) ([facility]) - Final, Complete Human Rhinovirus/Enterovirus Discharge Medications Scheduled Atorvastatin Calcium (Atorvastatin Calcium) 20 Mg Tablet, 40 MG PO DAILY Azithromycin (Azithromycin) 500 Mg Tablet, 1 TAB PO DAILY Fluticasone Propion/Salmeterol (Advair Hfa 230-21 Mcg Inhaler) 12 Gm Hfa.aer.ad, 2 PUFF INH RBID Furosemide (Lasix) 20 Mg Tablet, 20 MG PO DAILY Gabapentin (Gabapentin) 400 Mg Capsule, 400 MG PO BID, (Reported) Ipratropium [place] (Atrovent Hfa) 12.9 Gm Hfa.aer.ad, 2 PUFF INH QID Lisinopril (Lisinopril) 5 Mg Tab, 5 MG PO DAILY, (Reported) Pantoprazole Sodium (Pantoprazole Sodium) 40 Mg Tablet.dr, 40 MG PO DAILY Prednisone (Prednisone) 10 Mg Tablet, 10 MG PO TAPER Take 4 tabs daily x 3 days, then 3 tabs daily x 3 days, then 2 tabs daily x 3 days, then 1 tab daily x 3 days and stop Scheduled PRN Acetaminophen with Codeine (Acetaminophen-Cod #4 Tablet) 1 Each Tablet, 1 TAB PO Q6H PRN for PAIN LEVEL 5-10, (Reported) Albuterol Sulfate (Ventolin Hfa) 108 Mcg/Act Aer, 1 PUFF INH Q4H PRN for SHORTNE SS OF BREATH, (Reported) Allergies Coded Allergies: No Known Allergies (Verified , 06/20/17) MICHELINE SOLIS DO Mar 26, 2021 15:33
== END 2021-03-26 12:50 | disposition home or self-care (01) | DRG 192 ==
LOC: M ED 10:45 → M ED INP 14:32 → ENRESERV 15:35 → M MSPAV 18:31
PROVIDERS: ADMIT Internal Medicine; ATTEND Internal Medicine
DX: J44.1 Chronic obstructive pulmonary disease with (acute) exacerbation (principal); E78.5 Hyperlipidemia, unspecified; I10 Essential (primary) hypertension; B97.89 Other viral agents as the cause of diseases classified elsewhere; B97.10 Unspecified enterovirus as the cause of diseases classified elsewhere; F17.200 Nicotine dependence, unspecified, uncomplicated; Z79.899 Other long term (current) drug therapy; M19.90 Unspecified osteoarthritis, unspecified site

== ENCOUNTER → 2021-06-12 | Outpatient (CLI) | payer MEDICARE ==
[~2021-06-12] MED LIST changes: +ACET300T52 PO; +ADVA230A INH; +ATOR1TAB21 PO; +AZIT500T5 PO; +GABA-283 PO; +IPRAINH INH; +LASI20TA3 PO; +PANT40TA29 PO; +PRED10TA2 PO
--- NOTE | 2021-06-12 11:53 | REP ---
INDICATION: NICOTINE DEPENDENCE COMPARISON: None. TECHNIQUE: Axial noncontrast images from the thoracic inlet to the upper abdomen using low-dose lung screening technique (LDCT). FINDINGS: The bilateral lung cifuentes are well aerated. There is a small 4 mm density in the right apex which appears to have thin linear connection to the subpleural space and possible small early calcification. This likely represents a chronic scar and less likely active pathology. No further consolidation, suspicious nodule or mass lesion identified. No effusion. No pneumothorax. Tracheobronchial tree is patent. IMPRESSION: Lung-RADS category 2-S. The small density in the right apex likely represents chronic scar. No prior examinations are available for comparison. A 12 month low-dose CT follow-up examination may be warranted. <Electronically signed by Sivakumar Garg > 06/12/21 1301
== END ==
LOC: M RAD 11:13
PROVIDERS: ATTEND Nurse Practitioner Family
DX: Z12.2 Encounter for screening for malignant neoplasm of respiratory organs (principal); F17.210 Nicotine dependence, cigarettes, uncomplicated

== ENCOUNTER → 2022-06-25 | Outpatient (CLI) | payer MEDICARE ==
[~2022-06-25] MED LIST changes: -LISI-898 PO; +LISI5TAB11 PO
== END ==
LOC: M RAD 13:15
PROVIDERS: ATTEND Nurse Practitioner
DX: Z12.2 Encounter for screening for malignant neoplasm of respiratory organs (principal); F17.210 Nicotine dependence, cigarettes, uncomplicated; R91.1 Solitary pulmonary nodule

== ENCOUNTER → 2022-07-30 | Outpatient (CLI) | payer MEDICARE | LOC: M PLARAD 10:45 | PROVIDERS: ATTEND Nurse Practitioner | DX: R91.1 Solitary pulmonary nodule (principal); D35.02 Benign neoplasm of left adrenal gland; I70.0 Atherosclerosis of aorta | CPT/HCPCS: 78815; A9552 ==

== ENCOUNTER → 2023-03-06 | Outpatient (CLI) | payer MEDICARE | LOC: M PLAIMG 13:08 | PROVIDERS: ATTEND Nurse Practitioner Family | DX: R91.1 Solitary pulmonary nodule (principal) ==

== ENCOUNTER 2023-07-02 08:35 | Day surgery (SDC) | payer MEDICARE ==
[~2023-07-02] VITALS: Ht 154.9 cm; Wt 63.9 kg
[~2023-07-02 08:35] MED LIST changes: +ALBU2.5V10; +BEVE1AER; -GABA-283 PO; +GABA-284 PO; +MELO7.5T35; +META1TAB22; +NS 1,000 ML IV ONE
[2023-07-02 09:49] VITALS: TEMP 97.6
[2023-07-02 10:05] VITALS: BP 150/67; O2SAT 96
== END 2023-07-02 10:17 | disposition home or self-care (01) ==
LOC: M SDC 08:35
PROVIDERS: ATTEND Internal Medicine Gastroenterology
DX: Z86.010 Personal history of colon polyps (principal); K57.30 Diverticulosis of large intestine without perforation or abscess without bleeding; Z80.0 Family history of malignant neoplasm of digestive organs; I10 Essential (primary) hypertension; J44.9 Chronic obstructive pulmonary disease, unspecified; M19.90 Unspecified osteoarthritis, unspecified site; G62.9 Polyneuropathy, unspecified; Z79.899 Other long term (current) drug therapy

== ENCOUNTER → 2023-12-24 | Outpatient (CLI) | payer MEDICARE ==
[~2023-12-24] MED LIST changes: -NS 1,000 ML IV ONE
== END ==
LOC: M PLAIMG 10:51
PROVIDERS: ATTEND Physician Assistant
DX: M54.50 Low back pain, unspecified (principal)

== ENCOUNTER → 2024-03-12 | Outpatient (CLI) | payer MEDICARE | LOC: M PLAIMG 14:03 | PROVIDERS: ATTEND Internal Medicine Cardiovascular Disease | DX: R94.31 Abnormal electrocardiogram [ECG] [EKG] (principal); I27.20 Pulmonary hypertension, unspecified ==

== ENCOUNTER → 2024-03-27 | Outpatient (CLI) | payer MEDICARE | LOC: M SLEEP HO 10:56 | PROVIDERS: ATTEND Internal Medicine Cardiovascular Disease | DX: J43.2 Centrilobular emphysema (principal) ==

== ENCOUNTER → 2024-06-25 | Outpatient (CLI) | payer MEDICARE ==
[~2024-06-25] MED LIST changes: +GABA-1172 PO; -GABA-282 PO
== END ==
LOC: M CARPUL 12:25
PROVIDERS: ATTEND Internal Medicine Cardiovascular Disease
DX: I25.10 Atherosclerotic heart disease of native coronary artery without angina pectoris (principal)

== ENCOUNTER → 2025-01-04 | Outpatient (CLI) | payer MEDICARE ==
[~2025-01-04] MED LIST changes: +META-10; -META1TAB22
== END ==
LOC: M PLARAD 07:21
PROVIDERS: ATTEND Physician Assistant Medical
DX: R91.1 Solitary pulmonary nodule (principal)
CPT/HCPCS: 78815; A9552

== ENCOUNTER → 2025-04-05 | Outpatient (CLI) | payer MEDICARE ==
[~2025-04-05] MED LIST changes: +ACETAMINOPHEN 325 MG TAB PO PRN; -MELO7.5T35; +MELO7.5T35 PO; +NICO14DI24 TD; +TIZA2TA PO; +TREL1AER
[2025-04-05 12:10] VITALS: TEMP 97.1
[2025-04-05 12:34] LABS: PLATELET COUNT, AUTOMATED 143 10^3/uL (150-450)
[2025-04-05 12:44] LABS: INR 0.88
[2025-04-05] MEDS: NS (Normal Saline) 0.9% 1,000 ML IV SCH (13:00)
[2025-04-05] MEDS: LIDOCAINE 1% MDV 20 ML VIAL SC ONE (14:00)
[2025-04-05] MEDS: MIDAZOLAM INJ 2 MG/2 ML VIAL IV PRN (14:11)
[2025-04-05 15:30] VITALS: BP 150/72; O2SAT 99
== END ==
LOC: M IRPRO 11:43
PROVIDERS: ATTEND Internal Medicine Critical Care Medicine
DX: R91.1 Solitary pulmonary nodule (principal)
CPT/HCPCS: 32408; 85027; 85610; 88305; 99152; 99153; J2250; J3010

== ENCOUNTER → 2025-04-22 | Outpatient (CLI) | payer MEDICARE ==
[~2025-04-22] MED LIST changes: -ACETAMINOPHEN 325 MG TAB PO PRN; +TERB250T91 PO
== END ==
LOC: M ONCR 13:43
PROVIDERS: ATTEND General Practice
DX: C34.11 Malignant neoplasm of upper lobe, right bronchus or lung (principal); F17.218 Nicotine dependence, cigarettes, with other nicotine-induced disorders; Z79.1 Long term (current) use of non-steroidal anti-inflammatories (NSAID); Z79.51 Long term (current) use of inhaled steroids; Z79.899 Other long term (current) drug therapy; Z88.8 Allergy status to other drugs, medicaments and biological substances; Z90.710 Acquired absence of both cervix and uterus

== ENCOUNTER → 2025-05-13 | Outpatient (CLI) | payer MEDICARE ==
[~2025-05-13] VITALS: Ht 154.9 cm; Wt 68.2 kg
[~2025-05-13] MED LIST changes: +**PLEASE UPDATE HEIGHT AND WEIGHT XX SCH; +HYDR-3713 PO
[2025-05-13 07:15] VITALS: TEMP 97.9
[2025-05-13] MEDS: NS (Normal Saline) 0.9% 1,000 ML IV SCH (07:42)
[2025-05-13] MEDS: ceFAZolin SODIUM 2 GM in DEXTROSE 5% (D5W) ADV/MINI-BAG 50 ML IV ONE (07:42)
[2025-05-13] MEDS: MIDAZOLAM INJ 2 MG/2 ML VIAL IV PRN (08:09)
[2025-05-13] MEDS: LIDOCAINE 1% MDV 20 ML VIAL SC SCH (08:30)
[2025-05-13 09:00] VITALS: BP 141/65; O2SAT 96
== END ==
LOC: M IRPRO 07:01
PROVIDERS: ATTEND Internal Medicine Medical Oncology
DX: C34.11 Malignant neoplasm of upper lobe, right bronchus or lung (principal)
CPT/HCPCS: 36561; 99152; 99153; J0690; J1642; J2250; J3010

== ENCOUNTER → 2025-05-17 | Outpatient (CLI) | payer MEDICARE ==
[~2025-05-17] MED LIST changes: -**PLEASE UPDATE HEIGHT AND WEIGHT XX SCH; +PROHANCE 279.3MG/ML 15ML VIAL ONE
== END ==
LOC: M PLAIMG 13:49
PROVIDERS: ATTEND Internal Medicine Medical Oncology
DX: C34.90 Malignant neoplasm of unspecified part of unspecified bronchus or lung (principal); R51.9 Headache, unspecified
CPT/HCPCS: 70553; A9576

== ENCOUNTER → 2025-06-01 | Outpatient (RCR) | payer MEDICARE ==
[~2025-06-01] MED LIST changes: +LIDO15SO8 PO; +LIDO30CR18 TOP; +MAGICMW SSP; +ONDA-84 PO; +PROC10TA5 PO; -PROHANCE 279.3MG/ML 15ML VIAL ONE
== END ==
LOC: M ONCR 05-05 13:46
PROVIDERS: ATTEND General Practice
DX: Z51.0 Encounter for antineoplastic radiation therapy (principal); C34.11 Malignant neoplasm of upper lobe, right bronchus or lung

== ENCOUNTER → 2025-06-02 | Outpatient (CLI) | payer MEDICARE ==
[~2025-06-02] VITALS: Ht 154.9 cm; Wt 68.2 kg
[~2025-06-02] MED LIST changes: +GUAI1SOL2 PO; +OXYC-517 PO
[2025-06-02 10:15] VITALS: BP 128/72; O2SAT 97
== END ==
LOC: M IRPOV 10:01
PROVIDERS: ATTEND Radiology Diagnostic Radiology
DX: Z45.2 Encounter for adjustment and management of vascular access device (principal); C34.90 Malignant neoplasm of unspecified part of unspecified bronchus or lung; Z88.8 Allergy status to other drugs, medicaments and biological substances

== ENCOUNTER → 2025-07-02 | Outpatient (RCR) | payer MEDICARE | LOC: M ONCR 06-02 09:11 | PROVIDERS: ATTEND General Practice | DX: Z51.0 Encounter for antineoplastic radiation therapy (principal); C34.11 Malignant neoplasm of upper lobe, right bronchus or lung ==